=== PATIENT | male | born 1985 | race Caucasian/White ===

== ENCOUNTER 2017-02-23 02:47 | Inpatient (IN) | payer SELFPAY ==
[2017-02-23] VITALS (15 sets, daily range): BP systolic 104–150; BP diastolic 54–90; PULSE 59–99; RESP 16–22; TEMP 97.9–99.3; O2SAT 98–100
[~2017-02-23 02:47] MED LIST: AUGM875 PO; DIFL500T PO
[2017-02-23] MEDS ORDERED: PROPOFOL 1000 MG/100 ML INJ 100 ML ONE (02:58)
[2017-02-23 03:08] LABS: I-STAT POTASSIUM 4.3 MMOL/L (3.5-4.9)
[2017-02-23 03:10] LABS: AUTOMATED NEUTROPHIL # 12.1 TH/MM3 (1.8-7.7); BASOPHIL # 0.1 TH/MM3 (0-0.2); BASOPHIL % 0.6 % (0.0-2.0); EOSINOPHIL # 0.2 TH/MM3 (0-0.4); EOSINOPHIL % 0.8 % (0.0-4.0); HEMATOCRIT 46.2 % (39.0-51.0); LYMPH % 28.8 % (9.0-44.0); LYMPHOCYTE # 5.2 TH/MM3 (1.0-4.8); MEAN CELL VOLUME 91.9 FL (80.0-100.0); MEAN CORPUSCULAR HEMOGLOBIN 31.2 PG (27.0-34.0); MONO % 2.3 % (0.0-8.0); NEUT % 67.5 % (16.0-70.0); PLATELET COUNT 231 TH/MM3 (150-450); RED BLOOD COUNT 5.03 MIL/MM3 (4.50-5.90); RED CELL DISTRIBUTION WIDTH 13.6 % (11.6-17.2)
[2017-02-23 03:13] LABS: HEMO FLAGS AUTO DIFF
[2017-02-23] MEDS ORDERED: DIPHTH/TETANUS/ACEL PERTUSSIS (BOOSTER) 0.5 ML VIAL/PFS IM ONE (03:16)
[2017-02-23] MEDS ORDERED: ceFAZolin 2 GM PREMIX 50 ML IV STA (03:17)
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
[2017-02-23] MEDS ORDERED: ceFAZolin 2 GM PREMIX 50 ML ONE (03:27)
[2017-02-23 03:41] LABS: INTERNATIONAL NORMALIZED RATIO 1.1 RATIO; PROTHROMBIN TIME - PATIENT 11.7 SEC (9.8-11.6)
[2017-02-23] MEDS ORDERED: LACTULOSE SYRUP 20 GM/30 ML CUP PO PRN (03:45)
[2017-02-23] MEDS ORDERED: BISACODYL 10 MG SUPP RECTAL PRN (03:45)
[2017-02-23] MEDS ORDERED: MISCELLANEOUS NURSING INFORMATION XX SCH (03:45)
[2017-02-23] MEDS ORDERED: CHLORHEXIDINE GLUCONATE 2 % 1 PACK (2 CLOTHS) TOP PRN (03:45)
[2017-02-23] MEDS ORDERED: SODIUM CHLORIDE 0.9% FLUSH 10 ML FLUSH IV FLUSH PRN (03:45)
[2017-02-23] MEDS ORDERED: ACETAMINOPHEN 325 MG TAB PO PRN (03:45)
[2017-02-23] MEDS ORDERED: SENNOSIDES 8.6 MG TAB PO PRN (03:45)
[2017-02-23] MEDS ORDERED: MAGNESIUM HYDROXIDE SUSP 30 ML CUP PO PRN (03:45)
[2017-02-23 03:49] LABS: APTT (PATIENT) 25.9 SEC (24.3-30.1)
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
[2017-02-23 04:02] LABS: BANDS 2 % (0-6); BASOPHILS 1 % (0-2); METAMYELOCYTES 1 % (0-1); NEUTROPHIL # MANUAL DIFF 11.9 TH/MM3 (1.8-7.7); POLYS (SEG NEUTROPHILS) 63 % (16-70); WBC DIFF SAMPLE 100
[2017-02-23 04:03] LABS: PLATELET ESTIMATE SMEAR NORMAL (NORMAL); PLATELET MORPHOLOGY NORMAL (NORMAL)
[2017-02-23 04:04] LABS: SCAN/DIFF FINAL DIFF MANUAL
[2017-02-23] MEDS: CHLORHEXIDINE GLUCONATE 2 % 1 PACK (2 CLOTHS) TOP SCH (04:30)
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
[2017-02-23] MEDS ORDERED: IOHEXOL 350 MG/ML 10 ML VIAL (for RAD DIAG) IV ONE (04:37)
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
[2017-02-23] MEDS: PROPOFOL 1000 MG/100 ML INJ 100 ML IV SCH ×3 (04:55→23:30)
[2017-02-23] MEDS: SODIUM CHLOR 0.9% 1000 ML INJ 1,000 ML IV SCH ×2 (04:55→12:16)
[2017-02-23] MEDS: fentaNYL DRIP 250 ML IV SCH ×3 (04:55→23:29)
[2017-02-23 05:30] LABS: BLOOD GAS BASE EXCESS -6.8 mmol/L (-2-2); BLOOD GAS CARBOXYHEMOGLOBIN 1.1 % (0-4); BLOOD GAS HCO3 18 mmol/L (22-26); BLOOD GAS O2 HGB SATURATION 98 % (90-100); BLOOD GAS OXYGEN CONTENT 20.5 Vol % (12.0-20.0); BLOOD GAS PCO2 38 mmHg (38-42); BLOOD GAS PO2 536 mmHg (61-120); BLOOD GAS TOTAL HGB 13.9 G/DL (12.0-16.0); TEMP CORR TO 98.6
[2017-02-23 05:31] LABS: CRITICAL VALUE NO; DRAW SITE LT RADIAL; FIO2 100 %; NUMBER OF ARTERIAL PUNCTURES 1; OXYGEN DEVICE VENTILATOR; STAT NO; ULNAR PULSE PRESENT; VENT SETTINGS AC/16/500/PEEP5
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
[2017-02-23 05:57] LABS: HEMATOCRIT 40.3 % (39.0-51.0)
[2017-02-23] MEDS ORDERED: VANCOMYCIN HCL 1000 MG VIAL ONE (07:11)
[2017-02-23] MEDS ORDERED: SODIUM CHLOR 0.9% 250 ML INJ 250 ML ONE (07:11)
[2017-02-23] MEDS ORDERED: GENTAMICIN SULFATE 80 MG/2 ML VIAL ONE (07:11)
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
[2017-02-23] MEDS ORDERED: TRANEXAMIC ACID IV SCH ×2 (07:45→07:52)
[2017-02-23] MEDS ORDERED: SODIUM CHLORIDE 0.9% IV SCH ×2 (07:45→07:52)
[2017-02-23] MEDS ORDERED: TRANEXAMIC ACID INJ 1,005 MG in SODIUM CHLORIDE 0.9% INJ 100 ML IV SCH (07:45)
[2017-02-23] MEDS: DOCUSATE SODIUM 50 MG/SENNA 8.6 MG TAB PO SCH ×2 (07:49→20:48)
[2017-02-23] MEDS: SODIUM CHLORIDE 0.9% FLUSH 10 ML FLUSH IV FLUSH SCH ×2 (07:49→20:48)
[2017-02-23] MEDS: PANTOPRAZOLE SODIUM 40 MG VIAL IV SCH (07:56)
[2017-02-23] MEDS ORDERED: RESP: ALBUTEROL 2.5 MG/IPRATROPIUM 0.5 MG NEB (PRN) NEB (08:00)
[2017-02-23] MEDS ORDERED: POTASSIUM PHOSPHATE MONOBASIC 500 MG TAB PO PRN (08:00)
[2017-02-23] MEDS ORDERED: MAGNESIUM SULFATE INJ 2 GM in SODIUM CHLORIDE 0.9% INJ 96 ML IV PRN (08:00)
[2017-02-23] MEDS ORDERED: MAGNESIUM OXIDE 400 MG TAB PO PRN (08:00)
[2017-02-23] MEDS ORDERED: POTASSIUM PHOSPHATE MONOBASIC 500 MG TAB PO/TUBE PRN (08:00)
[2017-02-23] MEDS ORDERED: POTASSIUM CHLOR 20 MEQ PREMIX 100 ML IV PRN (08:00)
[2017-02-23] MEDS ORDERED: POTASSIUM CHLOR 40 MEQ PREMIX 100 ML IV PRN ×2 (08:00)
[2017-02-23] MEDS ORDERED: SODIUM PHOSPHATE INJ 30 MMOL in SODIUM CHLOR 0.9% 250 ML INJ 240 ML IV PRN (08:00)
[2017-02-23] MEDS ORDERED: MAGNESIUM SULFATE INJ 4 GM in SODIUM CHLORIDE 0.9% INJ 92 ML IV PRN (08:00)
[2017-02-23] MEDS ORDERED: POTASSIUM CHLORIDE 25 MEQ EFFERVESCENT TAB PO PRN (08:00)
[2017-02-23] MEDS: CHLORHEXIDINE 0.12% (ORAL KIT) 15 ML CUP MT SCH ×2 (08:00→20:49)
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
[2017-02-23] MEDS ORDERED: ACETAMINOPHEN 1000 MG/100 ML VIAL IV ONE (08:15)
[2017-02-23] MEDS ORDERED: MIDAZOLAM HCL 5 MG/5 ML VIAL ONE (08:15)
[2017-02-23] MEDS ORDERED: FAMOTIDINE 20 MG/2 ML VIAL ONE (08:16)
[2017-02-23] MEDS ORDERED: HYDROmorphone HCL PF 2 MG/ML VIAL ONE (08:16)
[2017-02-23] MEDS ORDERED: fentaNYL CITRATE 250 MCG/5 ML AMP ONE ×2 (08:16)
[2017-02-23] MEDS ORDERED: DEXAMETHASONE SOD PHOS 4 MG/ML VIAL ONE (08:16)
[2017-02-23] MEDS: levETIRAcetam INJ 500 MG in SODIUM CHLORIDE 0.9% INJ 100 ML IV SCH ×2 (08:32→20:48)
[2017-02-23] MEDS: LACTULOSE SYRUP 20 GM/30 ML CUP PO SCH (09:00)
[2017-02-23] MEDS: RESP: ALBUTEROL 2.5 MG/IPRATROPIUM 0.5 MG NEB (SCH) NEB ×3 (09:15→20:04)
[2017-02-23 10:41] LABS: MAGNESIUM 2.6 MG/DL (1.5-2.5)
[2017-02-23] MEDS: LACTATED RINGER'S 1000 ML INJ 1,000 ML IV SCH ×2 (10:42→19:44)
[2017-02-23] MEDS ORDERED: ACETAMINOPHEN/HYDROcodone 325 MG/10 MG TAB PO PRN ×2 (10:45)
--- NOTE | 2017-02-23 10:51 | PD.OP ---
cc: Abel Rae MD Operative Report Date of Surgery: February 23, 2017 Preoperative Diagnosis: Pubic symphysis tech stasis, right sacroiliac joint disruption Postoperative Diagnosis: Procedure: Open reduction internal fixation pubic symphysis, right iliosacral screw placement Anesthesia: Gen. Surgeon: Abel Rae Boat Builder(s): DIMPLE De La O PA-C The surgical procedure was assisted by my physician fundraising assistant. My P.A. presence was necessary throughout this case for the manipulation and positioning of the surgical extremity. My P.A. was assisting me throughout the duration of this procedure. The skill set of a physician fundraising assistant was medically necessary to complete this procedure. During the surgical case the surgical forceps fabricator was working at the back table and the physician fundraising assistant was directly assisting me. Operation and Findings: Patient was seen and evaluated preoperatively. Patient was intubated and sedated and no family was available for consents. Consents were signed is medically necessary by 2 physicians. The operative site was marked. Patient was brought to the OR and placed on the OR table. IV sedation and general endotracheal anesthesia were administered. The pelvic region was prepped with alcohol followed by Hibiclens and draped in the usual sterile fashion. A timeout procedure was performed. IV antibiotics were given prior to incision. The procedure began with a five-inch Pfannenstiel incision over the lower abdomen. The subcutaneous tissue was dissected with Bovie. The linea alba was split in line with fibers. The bladder was identified. The bladder was protected throughout the procedure. At this point the pubic symphysis was identified. There was disruption of the pubic symphysis. A 3.5 screw was placed on each side of the pubic symphysis. A 3.5 reduction clamp was now used to reduce the symphysis. Fluoroscopy confirmed excellent alignment of the pelvic ring. A six-hole ITS plate was selected. The plate was provisionally held to bone with K-wires. 3.5 cortical screws were used to compress plate to bone. Three screws were placed on each side of the pubic symphysis. All screws were pre-drilled and pre-measured for appropriate length. Final fluoroscopy revealed well-aligned fracture with well-placed hardware. At this point the right sacroiliac joint was visualized. Joint was still widened. The leg was manipulated. The joint was reducible. A 1 cemented incision was made over the lateral ilium. A guidepin was placed through the lateral ilium. The circular joint was now held in a reduced position. Guidepin was now advanced into the center of the S1 body. A combination of the femoral canal fluoroscopy were used to aid in guidepin placement to avoid injury to neurovascular structures. Screw length was measured. Cannulated drill was placed over the guidepin. A 7.3 Synthes cannulated screw was placed over the guidepin. The sacroiliac joint reduced and excellent alignment. Next attention was turned to closure. A NICO drain was placed deep in the wound. Fascial layer was closed with #1 Vicryl. Subcutaneous tissues closed with 3- 0 Vicryl. Skin was closed with antelmo. Sterile dressings were applied. Needle and sponge counts were correct. Abel Rae MD February 23, 2017 10:51
[2017-02-23] MEDS ORDERED: ePHEDrine/NS 25 MG/5 ML SYR IV ONE (11:00)
[2017-02-23] MEDS ORDERED: PHENYLEPH/NS 1000 MCG/10 ML SYR IV ONE (11:01)
[2017-02-23] MEDS ORDERED: ONDANSETRON HCL 4 MG/2 ML VIAL IV PUSH ONE (11:01)
--- NOTE | 2017-02-23 11:11 | PD.ORT.PN ---
Subjective Subjective Remarks POD 0 s/p ORIF pubic symphysis and right SI screw Objective Vitals Vital Signs Date Time Temp Pulse Resp B/P Pulse Ox O2 Delivery O2 Flow Rate FiO2 02/23/17 08:45 99 60 02/23/17 08:00 30 02/23/17 08:00 98.4 71 16 104/54 98 02/23/17 08:00 71 02/23/17 07:00 98 Mechanical Ventilator 30 02/23/17 06:00 76 02/23/17 04:00 100 02/23/17 04:00 97.9 99 22 150/90 100 02/23/17 04:00 99 02/23/17 03:30 100 100 02/23/17 03:30 100 100 I/O 02/22/17 02/22/17 02/22/17 02/23/17 02/23/17 02/23/17 07:00 15:00 23:00 07:00 15:00 23:00 Intake Total 1233 ml Output Total 900 ml Balance 333 ml Intake IV Total 1233 ml Output Urine Total 800 ml Gastric Drainage Total 100 ml Result Diagram: 02/23/17 0541 Other Results Laboratory Tests Test 02/23/17 02:50 Prothrombin Time 11.7 SEC (9.8-11.6) Prothromb Time International 1.1 RATIO Ratio Imaging Last 24 hours Impressions Pelvis X-Ray 02/23/17300 Signed Impressions: Service Date/Time: Thursday, February 23, 2017 02:41 - CONCLUSION: The pubic symphysis is widened to 2.6 cm. Mark Santiago MD Maxillofacial CT 02/23/17300 Signed Impressions: Service Date/Time: Thursday, February 23, 2017 03:17 - CONCLUSION: Normal examination except for mild sinus disease in the maxillary sinuses. Mark Santiago MD Head CT 02/23/17300 Signed Impressions: Service Date/Time: Thursday, February 23, 2017 03:14 - CONCLUSION: Subarachnoid and midline hemorrhage in the orbital frontal cortices bilaterally. Mark Santiago MD Chest X-Ray 02/23/17300 Signed Impressions: Service Date/Time: Thursday, February 23, 2017 02:41 - CONCLUSION: Normal examination. Mark Santiago MD Chest CT 02/23/17300 Signed Impressions: Service Date/Time: Thursday, February 23, 2017 03:28 - CONCLUSION: Patchy infiltrate throughout the lungs primarily anteriorly raises possibility of contusions. Mild pneumomediastinum. Questionable laceration of the liver Mark Santiago MD Cervical Spine CT 02/23/17300 Signed Impressions: Service Date/Time: Thursday, February 23, 2017 03:17 - CONCLUSION: Normal examination. Mark Santiago MD Abdomen/Pelvis CT 02/23/17300 Signed Impressions: Service Date/Time: Thursday, February 23, 2017 03:28 - CONCLUSION: Much better alignment of the pubic symphysis and the SI joints bilaterally. Ill-defined bilobed hypodensity in the right lobe of liver likely contained laceration. I don't see any fluid around the liver. Mark Santiago MD Neck CTA 02/23/17 0000 Signed Impressions: Service Date/Time: Thursday, February 23, 2017 03:23 - CONCLUSION: Mild narrowing of the right internal carotid artery 2 cm above its origin otherwise unremarkable study. Right vertebral artery is dominant Mark Santiago MD Chest X-Ray 02/23/17 0000 Signed Impressions: Service Date/Time: Thursday, February 23, 2017 02:41 - CONCLUSION: Normal examination. The endotracheal tube is just above the level of the clavicles Mark Santiago MD Objective Remarks Bilateral upper extremities: No laxity or obvious deformities. Intact distal pulses and cap refills Bilateral lower extremities: No laxity or obvious deformities. Intact distal pulses and cap refills Pelvic binder in place with Tong. Assessment & Plan Assessment and Plan 1) Pubic Symphysis diastasis s/p ORIF - POD 0 2) Right SI joint disruption s/p screw fixation - POD 0 -NWB BLE -daily dressing changes POD 2 -plan for DC of drain POD 2 -DVT prophylaxis with lovenox. -continue medical management -will follow up in office with Amarilis or JAMES in 2 weeks -CM for SNF placement Horacio Salazar February 23, 2017 11:11
[2017-02-23] MEDS: ceFAZolin 2 GM PREMIX 50 ML IV SCH ×2 (12:16→20:48)
--- NOTE | 2017-02-23 12:27 | RADRPT ---
EXAM DATE/TIME: 02/23/2017 10:27 [facility] COMPARISON: No previous studies available for comparison. INDICATIONS : Post-op ORIF of pelvis. MEDICAL HISTORY : None. SURGICAL HISTORY : None. ENCOUNTER: Subsequent ACUITY: 1 day PAIN SCORE: Non-responsive. LOCATION: pelvis FINDINGS: There is plate and screw fixation across the pubic symphysis and lag screw fixation across the right sacroiliac joint. Rectal temperature probe present. Normal alignment. No complications identified. CONCLUSION: 1. Pelvic fixation as above. Armando Handy MD on February 23, 2017 at 12:25 Board Certified Radiologist. This report was verified electronically.
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
[2017-02-23 19:15] LABS: HEMATOCRIT 35.7 % (39.0-51.0); REVIEW FLAG FINAL
[2017-02-23 20:02] LABS: BICARBONATE 26.1 MEQ/L (21.0-32.0); CALCIUM-PROTEIN CORRECTED 8.2 MG/DL (8.5-10.1); TOTAL BILIRUBIN ADULT 1.4 MG/DL (0.2-1.0)
[2017-02-24] VITALS (17 sets, daily range): BP systolic 105–133; BP diastolic 58–69; PULSE 53–65; RESP 12–19; TEMP 98.4–100; O2SAT 90–100
[2017-02-24] MEDS: LACTATED RINGER'S 1000 ML INJ 1,000 ML IV SCH (00:04)
[2017-02-24] MEDS: SODIUM CHLOR 0.9% 1000 ML INJ 1,000 ML IV SCH ×3 (01:17→17:16)
[2017-02-24] MEDS: RESP: ALBUTEROL 2.5 MG/IPRATROPIUM 0.5 MG NEB (SCH) NEB ×2 (02:59→08:42)
[2017-02-24] MEDS: CHLORHEXIDINE GLUCONATE 2 % 1 PACK (2 CLOTHS) TOP SCH (04:21)
[2017-02-24] MEDS: PROPOFOL 1000 MG/100 ML INJ 100 ML IV SCH (04:43)
[2017-02-24 04:55] LABS: AUTOMATED NEUTROPHIL # 9.6 TH/MM3 (1.8-7.7); BASOPHIL % 0.1 % (0.0-2.0); HEMATOCRIT 32.5 % (39.0-51.0); HEMO FLAGS DIFF FINAL; LYMPH % 9.1 % (9.0-44.0); LYMPHOCYTE # 1.1 TH/MM3 (1.0-4.8); MEAN CELL VOLUME 92.7 FL (80.0-100.0); MEAN CORPUSCULAR HEMOGLOBIN 31.3 PG (27.0-34.0); MEAN CORPUSCULAR HGB CONC 33.7 % (32.0-36.0); MONO % 8.8 % (0.0-8.0); PLATELET COUNT 116 TH/MM3 (150-450); RED BLOOD COUNT 3.51 MIL/MM3 (4.50-5.90); RED CELL DISTRIBUTION WIDTH 13.7 % (11.6-17.2); WHITE BLOOD COUNT 11.7 TH/MM3 (4.0-11.0)
[2017-02-24 05:15] LABS: INTERNATIONAL NORMALIZED RATIO 1.1 RATIO; PROTHROMBIN TIME - PATIENT 12.1 SEC (9.8-11.6)
[2017-02-24 05:19] LABS: BICARBONATE 26.5 MEQ/L (21.0-32.0); POTASSIUM 3.8 MEQ/L (3.5-5.1)
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
--- NOTE | 2017-02-24 05:51 | RADRPT ---
EXAM DATE/TIME: 02/24/2017 05:07 [facility] COMPARISON: CHEST SINGLE AP, February 23, 2017, 2:41. INDICATIONS : Follow up Respiratory distress. MEDICAL HISTORY : None. SURGICAL HISTORY : None. ENCOUNTER: Subsequent ACUITY: 2 days PAIN SCORE: Non-responsive. LOCATION: Bilateral chest FINDINGS: A single view of the chest demonstrates the lungs to be symmetrically aerated without evidence of mas s, infiltrate or effusion. The endotracheal tube and nasogastric tube are both in good position The cardiomediastinal contours are unremarkable. Osseous structures are intact. CONCLUSION: Normal examination with the endotracheal tube and nasogastric tube in good position. Mark Santiago MD on February 24, 2017 at 5:49 Board Certified Radiologist. This report was verified electronically.
[2017-02-24] MEDS: ceFAZolin 2 GM PREMIX 50 ML IV SCH (06:02)
[2017-02-24] MEDS: SODIUM CHLORIDE 0.9% FLUSH 10 ML FLUSH IV FLUSH SCH ×2 (07:34→21:00)
[2017-02-24] MEDS: LACTULOSE SYRUP 20 GM/30 ML CUP PO SCH (07:34)
[2017-02-24] MEDS: PANTOPRAZOLE SODIUM 40 MG VIAL IV SCH (07:34)
[2017-02-24] MEDS: CHLORHEXIDINE 0.12% (ORAL KIT) 15 ML CUP MT SCH (07:34)
[2017-02-24] MEDS: levETIRAcetam INJ 500 MG in SODIUM CHLORIDE 0.9% INJ 100 ML IV SCH ×2 (07:34→21:03)
[2017-02-24] MEDS: DOCUSATE SODIUM 50 MG/SENNA 8.6 MG TAB PO SCH ×3 (07:34→21:03)
[2017-02-24 08:24] LABS: CALCIUM-PROTEIN CORRECTED 8.6 MG/DL (8.5-10.1)
[2017-02-24] MEDS ORDERED: DEXMEDETOMIDINE INJ 200 MCG in SODIUM CHLORIDE 0.9% INJ 50 ML IV SCH (09:45)
[2017-02-24] MEDS ORDERED: ENOXAPARIN SODIUM 40 MG/0.4 ML SYRINGE SQ SCH (10:00)
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
[2017-02-25] VITALS (12 sets, daily range): BP systolic 128–137; BP diastolic 63–87; PULSE 54–84; RESP 15–21; TEMP 99.3–100; O2SAT 97–100
[2017-02-25] MEDS ORDERED: ONDANSETRON HCL 4 MG/2 ML VIAL IV PUSH PRN (01:45)
[2017-02-25] MEDS ORDERED: HALOPERIDOL LACTATE 5 MG/ML AMP IV PUSH ONE (01:45)
[2017-02-25] MEDS: MORPHINE SULFATE 4 MG/ML INJ IV PUSH PRN ×5 (03:49→20:44)
[2017-02-25] MEDS: CHLORHEXIDINE GLUCONATE 2 % 1 PACK (2 CLOTHS) TOP SCH (03:49)
[2017-02-25 04:34] LABS: AUTOMATED NEUTROPHIL # 13.7 TH/MM3 (1.8-7.7); BASOPHIL % 0.1 % (0.0-2.0); HEMATOCRIT 30.3 % (39.0-51.0); LYMPH % 5.4 % (9.0-44.0); LYMPHOCYTE # 0.8 TH/MM3 (1.0-4.8); MEAN CELL VOLUME 92.7 FL (80.0-100.0); MEAN CORPUSCULAR HEMOGLOBIN 32.4 PG (27.0-34.0); MONO % 6.6 % (0.0-8.0); NEUT % 87.9 % (16.0-70.0); PLATELET COUNT 98 TH/MM3 (150-450); RED BLOOD COUNT 3.27 MIL/MM3 (4.50-5.90); RED CELL DISTRIBUTION WIDTH 13.4 % (11.6-17.2); WHITE BLOOD COUNT 15.6 TH/MM3 (4.0-11.0)
[2017-02-25 04:37] LABS: HEMO FLAGS AUTO DIFF
[2017-02-25 04:56] LABS: ALKALINE PHOSPHATASE 54 U/L (45-117); ALT (GPT) 379 U/L (12-78); ANION GAP 7 MEQ/L (5-15); AST (GOT) 198 U/L (15-37); BICARBONATE 27.1 MEQ/L (21.0-32.0); BLOOD UREA NITROGEN 10 MG/DL (7-18); CHLORIDE 110 MEQ/L (98-107); GLOMERULAR FILTRATION RATE 172 ML/MIN (>89); MAGNESIUM 2.4 MG/DL (1.5-2.5); POTASSIUM 3.6 MEQ/L (3.5-5.1); SODIUM (NA) 144 MEQ/L (136-145); TOTAL BILIRUBIN ADULT 0.7 MG/DL (0.2-1.0)
[2017-02-25] MEDS: SODIUM CHLOR 0.9% 1000 ML INJ 1,000 ML IV SCH ×2 (05:10→09:54)
--- NOTE | 2017-02-25 06:19 | RADRPT ---
EXAM DATE/TIME: 02/25/2017 05:09 [facility] COMPARISON: No previous studies available for comparison. INDICATIONS : Follow up respiratory distress, pt extubated MEDICAL HISTORY : None. SURGICAL HISTORY : None. ENCOUNTER: Subsequent ACUITY: 4 - 6 days PAIN SCORE: 7/10 LOCATION: Bilateral chest FINDINGS: A single view of the chest demonstrates the lungs to be symmetrically aerated without evidence of mas s, infiltrate or effusion. Patient extubated and NG tube removed. The cardiomediastinal contours are unremarkable. Osseous structures are intact. CONCLUSION: 1. No active disease. Patient extubated and NG tube removed. Armando Handy MD on February 25, 2017 at 6:17 Board Certified Radiologist. This report was verified electronically.
[2017-02-25 07:12] LABS: PLATELET ESTIMATE SMEAR LOW (NORMAL); PLATELET MORPHOLOGY NORMAL (NORMAL); SCAN/DIFF AUTO DIFF CONFIRMED
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
[2017-02-25] MEDS: DOCUSATE SODIUM 50 MG/SENNA 8.6 MG TAB PO SCH ×3 (09:00→21:00)
[2017-02-25] MEDS: LACTULOSE SYRUP 20 GM/30 ML CUP PO SCH (09:00)
[2017-02-25] MEDS: SODIUM CHLORIDE 0.9% FLUSH 10 ML FLUSH IV FLUSH SCH ×2 (09:52→20:30)
[2017-02-25] MEDS: levETIRAcetam INJ 500 MG in SODIUM CHLORIDE 0.9% INJ 100 ML IV SCH ×2 (09:52→20:30)
[2017-02-25] MEDS: PANTOPRAZOLE SODIUM 40 MG VIAL IV SCH (09:52)
[2017-02-25] MEDS: PIPERACIL-TAZO 3.375 GM PREMIX 50 ML IV SCH ×2 (09:53→18:59)
[2017-02-25] MEDS: QUEtiapine FUMARATE 25 MG TAB PO SCH ×3 (10:00→21:00)
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
[2017-02-26] VITALS (12 sets, daily range): BP systolic 127–149; BP diastolic 63–79; PULSE 49–94; RESP 15–19; TEMP 98.7–99.9; O2SAT 93–100
[2017-02-26] MEDS: MORPHINE SULFATE 4 MG/ML INJ IV PUSH PRN ×4 (00:10→22:57)
[2017-02-26] MEDS: SODIUM CHLOR 0.9% 1000 ML INJ 1,000 ML IV SCH (01:36)
[2017-02-26] MEDS: PIPERACIL-TAZO 3.375 GM PREMIX 50 ML IV SCH ×3 (01:55→17:06)
[2017-02-26] MEDS ORDERED: LIDOCAINE HCL 2% 100 MG/5 ML SYRINGE ONE (03:38)
[2017-02-26] MEDS ORDERED: ATROPINE SULFATE 1 MG/10 ML SYRINGE ONE (03:38)
[2017-02-26] MEDS ORDERED: EPINEPHrine HCL (1:10,000) 1 MG/10 ML SYRINGE ONE (03:38)
[2017-02-26] MEDS: CHLORHEXIDINE GLUCONATE 2 % 1 PACK (2 CLOTHS) TOP SCH (04:00)
--- NOTE | 2017-02-26 04:58 | RADRPT ---
EXAM DATE/TIME: 02/26/2017 04:01 [facility] COMPARISON: CHEST SINGLE AP, February 25, 2017, 5:09. INDICATIONS : Short of breath. MEDICAL HISTORY : None. SURGICAL HISTORY : None. ENCOUNTER: Subsequent ACUITY: 2 days PAIN SCORE: Non-responsive. LOCATION: Bilateral chest FINDINGS: A single view of the chest demonstrates the lungs to be symmetrically aerated without evidence of mas s, infiltrate or effusion. The cardiomediastinal contours are unremarkable. Osseous structures are intact. CONCLUSION: No acute disease. Luis Manuel Pereira MD on February 26, 2017 at 4:56 Board Certified Radiologist. This report was verified electronically.
--- NOTE | 2017-02-26 05:04 | RADRPT ---
EXAM DATE/TIME: 02/26/2017 03:50 [facility] COMPARISON: CT BRAIN W/O CONTRAST, February 24, 2017, 5:04. INDICATIONS : Follow up trauma. RADIATION DOSE: 56.35 CTDIvol (mGy) MEDICAL HISTORY : None SURGICAL HISTORY : None. ENCOUNTER: Subsequent ACUITY: 2 days PAIN SCALE: 0/10 LOCATION: cranial TECHNIQUE: Multiple contiguous axial images were obtained of the head. Using automated exposure control and adj ustment of the mA and/or kV according to patient size, radiation dose was kept as low as reasonably a chievable to obtain optimal diagnostic quality images. FINDINGS: Evolving bifrontal and bitemporal contusions are again noted. Mild blood along the tentorial leaves i s again noted. A small evolving contusion is seen in the left globus pallidus. The ventricles are sta ble and symmetric. No new acute findings are identified. CONCLUSION: Roughly stable evolving brain injuries with no new acute findings Luis Manuel Pereira MD on February 26, 2017 at 5:00 Board Certified Radiologist. This report was verified electronically.
[2017-02-26] MEDS ORDERED: BISACODYL 10 MG SUPP RECTAL ONE (08:45)
[2017-02-26] MEDS ORDERED: BISACODYL EC 5 MG TABEC PO ONE (08:45)
[2017-02-26] MEDS: SODIUM CHLORIDE 0.9% FLUSH 10 ML FLUSH IV FLUSH SCH ×2 (09:00→20:55)
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
[2017-02-26] MEDS: QUEtiapine FUMARATE 25 MG TAB PO SCH ×2 (09:41→20:15)
[2017-02-26] MEDS: LACTULOSE SYRUP 20 GM/30 ML CUP PO SCH (09:41)
[2017-02-26] MEDS: PANTOPRAZOLE SODIUM 40 MG VIAL IV SCH (09:42)
[2017-02-26] MEDS: levETIRAcetam INJ 500 MG in SODIUM CHLORIDE 0.9% INJ 100 ML IV SCH ×2 (09:42→20:55)
[2017-02-26] MEDS: DOCUSATE SODIUM 50 MG/SENNA 8.6 MG TAB PO SCH ×2 (10:38→20:55)
[2017-02-26] MEDS: SODIUM CHLORIDE 23.4% INJ 188 MEQ in SODIUM CHLOR 0.9% 1000 ML INJ 1,000 ML IV SCH (10:54)
--- NOTE | 2017-02-26 11:14 | PD.ORT.PN ---
Subjective Post Op Day #: 3 Subjective Remarks Patient in ICU, arousable and answering some questions, in restraints. RN reports pt will be transferred to floor. Objective Vitals Vital Signs Date Time Temp Pulse Resp B/P Pulse Ox O2 Delivery O2 Flow Rate FiO2 02/26/17 10:00 63 02/26/17 08:00 51 02/26/17 08:00 98.8 54 15 141/72 99 02/26/17 07:00 98 Room Air 02/26/17 06:00 54 02/26/17 04:00 99.1 61 19 127/63 93 02/26/17 04:00 61 02/26/17 03:45 16 02/26/17 02:00 58 02/26/17 00:00 60 02/26/17 00:00 99.5 60 17 131/66 100 02/25/17 22:00 59 02/25/17 20:00 99.7 78 17 137/71 97 02/25/17 20:00 78 02/25/17 19:00 99 Room Air 02/25/17 18:00 60 02/25/17 16:00 63 02/25/17 16:00 99.9 62 16 133/63 100 02/25/17 14:00 59 02/25/17 12:00 68 02/25/17 12:00 99.5 68 15 131/87 98 I/O 02/25/17 02/25/17 02/25/17 02/26/17 02/26/17 02/26/17 07:00 15:00 23:00 07:00 15:00 23:00 Intake Total 800 ml 756 ml 855 ml 776 ml Output Total 595 ml 750 ml 945 ml 1155 ml Balance 205 ml 6 ml -90 ml -379 ml Intake Oral 0 ml IV Total 800 ml 756 ml 855 ml 776 ml Output Urine Total 575 ml 750 ml 925 ml 1125 ml Drainage Total 20 ml 20 ml 30 ml # Bowel Movements 0 0 0 0 Result Diagram: 02/25/17 0336 02/25/17 033 Imaging Last 24 hours Impressions Pelvis X-Ray 02/23/17 0301 Signed Impressions: Service Date/Time: Thursday, February 23, 2017 02:41 - CONCLUSION: The pubic symphysis is widened to 2.6 cm. Mark Santiago MD Maxillofacial CT 02/23/17300 Signed Impressions: Service Date/Time: Thursday, February 23, 2017 03:17 - CONCLUSION: Normal examination except for mild sinus disease in the maxillary sinuses. Mark Santiago MD Head CT 02/23/17300 Signed Impressions: Service Date/Time: Thursday, February 23, 2017 03:14 - CONCLUSION: Subarachnoid and midline hemorrhage in the orbital frontal cortices bilaterally. Mark Santiago MD Chest X-Ray 02/23/17300 Signed Impressions: Service Date/Time: Thursday, February 23, 2017 02:41 - CONCLUSION: Normal examination. Mark Santiago MD Chest CT 02/23/17300 Signed Impressions: Service Date/Time: Thursday, February 23, 2017 03:28 - CONCLUSION: Patchy infiltrate throughout the lungs primarily anteriorly raises possibility of contusions. Mild pneumomediastinum. Questionable laceration of the liver Mark Santiago MD Cervical Spine CT 02/23/17300 Signed Impressions: Service Date/Time: Thursday, February 23, 2017 03:17 - CONCLUSION: Normal examination. Mark Santiago MD Abdomen/Pelvis CT 02/23/17300 Signed Impressions: Service Date/Time: Thursday, February 23, 2017 03:28 - CONCLUSION: Much better alignment of the pubic symphysis and the SI joints bilaterally. Ill-defined bilobed hypodensity in the right lobe of liver likely contained laceration. I don't see any fluid around the liver. Mark Santiago MD Neck CTA 02/23/17 Signed Impressions: Service Date/Time: Thursday, February 23, 2017 03:23 - CONCLUSION: Mild narrowing of the right internal carotid artery 2 cm above its origin otherwise unremarkable study. Right vertebral artery is dominant Mark Santiago MD Chest X-Ray 02/23/17 Signed Impressions: Service Date/Time: Thursday, February 23, 2017 02:41 - CONCLUSION: Normal examination. The endotracheal tube is just above the level of the clavicles Mark Santiago MD Procedures 1) Pubic Symphysis diastasis s/p ORIF 2) Right SI joint disruption s/p screw fixation Objective Remarks Bilateral upper extremities: No laxity or obvious deformities. Intact distal pulses and cap refills Bilateral lower extremities: No laxity or obvious deformities. Intact distal pulses and cap refills. Pelvis: dressing dry and intact, drains in place. Assessment & Plan Ortho Post Op Day #: 3 Problem List: (1) Motorcycle accident Assessment and Plan 1) Pubic Symphysis diastasis s/p ORIF - POD 3 2) Right SI joint disruption s/p screw fixation - POD 3 -NWB BLE -daily dressing changes and d/c drain today -DVT prophylaxis with lovenox. -continue medical management -will follow up in office with Teja or JAMES in 2 weeks -CM for SNF placement Melani Elise February 26, 2017 11:14
[2017-02-26 12:07] LABS: AUTOMATED NEUTROPHIL # 9.2 TH/MM3 (1.8-7.7); BASOPHIL % 0.1 % (0.0-2.0); EOSINOPHIL % 0.1 % (0.0-4.0); HEMATOCRIT 36.7 % (39.0-51.0); HEMO FLAGS DIFF FINAL; LYMPH % 9.9 % (9.0-44.0); LYMPHOCYTE # 1.1 TH/MM3 (1.0-4.8); MEAN CORPUSCULAR HEMOGLOBIN 31.5 PG (27.0-34.0); MEAN CORPUSCULAR HGB CONC 33.8 % (32.0-36.0); MONO % 5.2 % (0.0-8.0); NEUT % 84.7 % (16.0-70.0); PLATELET COUNT 123 TH/MM3 (150-450); RED BLOOD COUNT 3.94 MIL/MM3 (4.50-5.90); RED CELL DISTRIBUTION WIDTH 12.9 % (11.6-17.2); WHITE BLOOD COUNT 10.9 TH/MM3 (4.0-11.0)
[2017-02-26 12:31] LABS: ALKALINE PHOSPHATASE 62 U/L (45-117); ALT (GPT) 270 U/L (12-78); ANION GAP 6 MEQ/L (5-15); AST (GOT) 119 U/L (15-37); BICARBONATE 32.1 MEQ/L (21.0-32.0); BLOOD UREA NITROGEN 10 MG/DL (7-18); CHLORIDE 106 MEQ/L (98-107); GLOMERULAR FILTRATION RATE 138 ML/MIN (>89); MAGNESIUM 2.5 MG/DL (1.5-2.5); POTASSIUM 3.6 MEQ/L (3.5-5.1); SODIUM (NA) 144 MEQ/L (136-145); TOTAL BILIRUBIN ADULT 1.3 MG/DL (0.2-1.0)
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
[2017-02-27] VITALS (12 sets, daily range): BP systolic 128–167; BP diastolic 64–99; PULSE 48–64; RESP 14–22; TEMP 98.2–98.7; O2SAT 98–99
[2017-02-27] MEDS: PIPERACIL-TAZO 3.375 GM PREMIX 50 ML IV SCH ×3 (03:41→17:13)
[2017-02-27] MEDS: CHLORHEXIDINE GLUCONATE 2 % 1 PACK (2 CLOTHS) TOP SCH (04:00)
[2017-02-27 04:37] LABS: BASOPHIL % 0.2 % (0.0-2.0); EOSINOPHIL % 0.4 % (0.0-4.0); HEMATOCRIT 34.6 % (39.0-51.0); HEMO FLAGS DIFF FINAL; LYMPH % 12.5 % (9.0-44.0); LYMPHOCYTE # 1.2 TH/MM3 (1.0-4.8); MEAN CELL VOLUME 93.1 FL (80.0-100.0); MEAN CORPUSCULAR HEMOGLOBIN 31.1 PG (27.0-34.0); MEAN CORPUSCULAR HGB CONC 33.4 % (32.0-36.0); MONO % 6.6 % (0.0-8.0); NEUT % 80.3 % (16.0-70.0); PLATELET COUNT 125 TH/MM3 (150-450); RED BLOOD COUNT 3.72 MIL/MM3 (4.50-5.90); RED CELL DISTRIBUTION WIDTH 13.3 % (11.6-17.2); WHITE BLOOD COUNT 9.9 TH/MM3 (4.0-11.0)
[2017-02-27 04:52] LABS: ALKALINE PHOSPHATASE 58 U/L (45-117); ALT (GPT) 199 U/L (12-78); ANION GAP 6 MEQ/L (5-15); AST (GOT) 67 U/L (15-37); BICARBONATE 27.7 MEQ/L (21.0-32.0); BLOOD UREA NITROGEN 13 MG/DL (7-18); CHLORIDE 113 MEQ/L (98-107); GLOMERULAR FILTRATION RATE 169 ML/MIN (>89); MAGNESIUM 2.3 MG/DL (1.5-2.5); POTASSIUM 3.4 MEQ/L (3.5-5.1); SODIUM (NA) 147 MEQ/L (136-145); TOTAL BILIRUBIN ADULT 0.8 MG/DL (0.2-1.0)
[2017-02-27] MEDS: SODIUM CHLORIDE 23.4% INJ 188 MEQ in SODIUM CHLOR 0.9% 1000 ML INJ 1,000 ML IV SCH (06:29)
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
[2017-02-27] MEDS: SODIUM CHLORIDE 0.9% FLUSH 10 ML FLUSH IV FLUSH SCH ×2 (08:12→20:05)
[2017-02-27] MEDS: QUEtiapine FUMARATE 25 MG TAB PO SCH ×2 (08:12→20:04)
[2017-02-27] MEDS: levETIRAcetam INJ 500 MG in SODIUM CHLORIDE 0.9% INJ 100 ML IV SCH ×2 (08:12→20:05)
[2017-02-27] MEDS: POLYETHYLENE GLYCOL 17 GM PKG PO SCH (08:12)
[2017-02-27] MEDS: LACTULOSE SYRUP 20 GM/30 ML CUP PO SCH (08:12)
[2017-02-27] MEDS: DOCUSATE SODIUM 50 MG/SENNA 8.6 MG TAB PO SCH ×2 (08:12→20:06)
[2017-02-27] MEDS: PANTOPRAZOLE SODIUM 40 MG VIAL IV SCH (08:12)
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
[2017-02-27] MEDS: POTASSIUM CHLOR 20 MEQ PREMIX 100 ML IV PRN ×2 (10:24→12:56)
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
[2017-02-27] MEDS: MORPHINE SULFATE 4 MG/ML INJ IV PUSH PRN ×2 (14:35→20:04)
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
[2017-02-27] MEDS: MAGNESIUM HYDROXIDE SUSP 30 ML CUP PO SCH (20:05)
[2017-02-28] VITALS (10 sets, daily range): BP systolic 137–165; BP diastolic 65–98; PULSE 48–65; RESP 14–21; TEMP 97–98.7; O2SAT 98–100
[2017-02-28] MEDS: PIPERACIL-TAZO 3.375 GM PREMIX 50 ML IV SCH ×3 (01:48→17:58)
[2017-02-28] MEDS: MORPHINE SULFATE 4 MG/ML INJ IV PUSH PRN (01:49)
[2017-02-28] MEDS: CHLORHEXIDINE GLUCONATE 2 % 1 PACK (2 CLOTHS) TOP SCH (04:00)
[2017-02-28 04:36] LABS: AUTOMATED NEUTROPHIL # 7.7 TH/MM3 (1.8-7.7); BASOPHIL % 0.1 % (0.0-2.0); EOSINOPHIL # 0.1 TH/MM3 (0-0.4); EOSINOPHIL % 1.3 % (0.0-4.0); HEMATOCRIT 34.8 % (39.0-51.0); HEMO FLAGS DIFF FINAL; LYMPH % 13.4 % (9.0-44.0); LYMPHOCYTE # 1.3 TH/MM3 (1.0-4.8); MEAN CELL VOLUME 92.4 FL (80.0-100.0); MEAN CORPUSCULAR HEMOGLOBIN 30.9 PG (27.0-34.0); MEAN CORPUSCULAR HGB CONC 33.5 % (32.0-36.0); NEUT % 78.2 % (16.0-70.0); PLATELET COUNT 140 TH/MM3 (150-450); RED BLOOD COUNT 3.76 MIL/MM3 (4.50-5.90); RED CELL DISTRIBUTION WIDTH 12.7 % (11.6-17.2); WHITE BLOOD COUNT 9.9 TH/MM3 (4.0-11.0)
[2017-02-28 04:58] LABS: ANION GAP 10 MEQ/L (5-15); AST (GOT) 44 U/L (15-37); BICARBONATE 24.4 MEQ/L (21.0-32.0); BLOOD UREA NITROGEN 11 MG/DL (7-18); CHLORIDE 110 MEQ/L (98-107); GLOMERULAR FILTRATION RATE 197 ML/MIN (>89); MAGNESIUM 2.2 MG/DL (1.5-2.5); POTASSIUM 3.6 MEQ/L (3.5-5.1); SODIUM (NA) 144 MEQ/L (136-145)
[2017-02-28 05:01] LABS: ALKALINE PHOSPHATASE 54 U/L (45-117); ALT (GPT) 143 U/L (12-78); TOTAL BILIRUBIN ADULT 1.1 MG/DL (0.2-1.0)
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
[2017-02-28] MEDS ORDERED: BISACODYL EC 5 MG TABEC PO ONE (08:30)
[2017-02-28] MEDS ORDERED: BISACODYL 10 MG SUPP RECTAL ONE (08:30)
[2017-02-28] MEDS: SODIUM CHLORIDE 23.4% INJ 188 MEQ in SODIUM CHLOR 0.9% 1000 ML INJ 1,000 ML IV SCH (08:32)
[2017-02-28] MEDS: levETIRAcetam INJ 500 MG in SODIUM CHLORIDE 0.9% INJ 100 ML IV SCH (08:38)
[2017-02-28] MEDS: QUEtiapine FUMARATE 25 MG TAB PO SCH ×2 (08:39→22:59)
[2017-02-28] MEDS: PANTOPRAZOLE SODIUM 40 MG VIAL IV SCH (08:39)
[2017-02-28] MEDS: LACTULOSE SYRUP 20 GM/30 ML CUP PO SCH (08:40)
[2017-02-28] MEDS: SODIUM CHLORIDE 0.9% FLUSH 10 ML FLUSH IV FLUSH SCH ×2 (08:40→21:00)
[2017-02-28] MEDS: POLYETHYLENE GLYCOL 17 GM PKG PO SCH (08:40)
[2017-02-28] MEDS: DOCUSATE SODIUM 50 MG/SENNA 8.6 MG TAB PO SCH ×2 (08:41→23:00)
[2017-02-28] MEDS ORDERED: ACETAMINOPHEN 325 MG TAB PO PRN (09:30)
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
[2017-02-28] MEDS: ENOXAPARIN SODIUM 40 MG/0.4 ML SYRINGE SQ SCH (13:00)
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
[2017-02-28] MEDS ORDERED: ACETAMINOPHEN/HYDROcodone 325 MG/5 MG TAB PO PRN (20:00)
[2017-02-28] MEDS: MAGNESIUM HYDROXIDE SUSP 30 ML CUP PO SCH (21:00)
[2017-02-28] MEDS: ACETAMINOPHEN/HYDROcodone 325 MG/5 MG TAB PO PRN (22:59)
[2017-03-01 00:30] VITALS: BP 134/79; PULSE 49; RESP 16; TEMP 96.2; O2SAT 98
[2017-03-01] MEDS: PIPERACIL-TAZO 3.375 GM PREMIX 50 ML IV SCH ×3 (01:57→17:19)
[2017-03-01] MEDS: CHLORHEXIDINE GLUCONATE 2 % 1 PACK (2 CLOTHS) TOP SCH (04:00)
[2017-03-01 05:08] VITALS: BP 116/70; PULSE 52; RESP 16; TEMP 97.7; O2SAT 97
[2017-03-01 08:00] VITALS: BP 141/87; PULSE 64; RESP 18; TEMP 97.7; O2SAT 98
[2017-03-01] MEDS: QUEtiapine FUMARATE 25 MG TAB PO SCH ×2 (08:46→19:54)
[2017-03-01] MEDS: DOCUSATE SODIUM 50 MG/SENNA 8.6 MG TAB PO SCH ×2 (08:46→19:56)
[2017-03-01] MEDS: PANTOPRAZOLE SOD 40 MG DELAYED RELEASE TAB PO SCH (08:46)
[2017-03-01] MEDS: POLYETHYLENE GLYCOL 17 GM PKG PO SCH (08:46)
[2017-03-01] MEDS: LACTULOSE SYRUP 20 GM/30 ML CUP PO SCH (08:46)
[2017-03-01] MEDS: SODIUM CHLORIDE 0.9% FLUSH 10 ML FLUSH IV FLUSH SCH ×2 (08:46→19:56)
[2017-03-01] MEDS: ACETAMINOPHEN/HYDROcodone 325 MG/5 MG TAB PO PRN ×3 (09:18→19:54)
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
[2017-03-01 12:00] VITALS: BP 127/76; PULSE 89; RESP 19; TEMP 97.1; O2SAT 98
[2017-03-01] MEDS: ENOXAPARIN SODIUM 40 MG/0.4 ML SYRINGE SQ SCH (13:16)
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
[2017-03-01 15:53] VITALS: BP 119/73; PULSE 76; RESP 17; TEMP 96.8; O2SAT 98
[2017-03-01] MEDS: MAGNESIUM HYDROXIDE SUSP 30 ML CUP PO SCH (19:56)
[2017-03-01 20:00] VITALS: BP 140/81; PULSE 66; RESP 19; TEMP 93.1; O2SAT 98
[2017-03-02] VITALS: BP 120/69; PULSE 63; RESP 16; TEMP 97.8; O2SAT 97
[2017-03-02 04:00] VITALS: BP 136/84; PULSE 63; RESP 20; TEMP 98.7; O2SAT 98
[2017-03-02] MEDS: PIPERACIL-TAZO 3.375 GM PREMIX 50 ML IV SCH (04:11)
[2017-03-02 08:00] VITALS: BP 134/76; PULSE 57; RESP 16; TEMP 98.1; O2SAT 98
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
[2017-03-02] MEDS: QUEtiapine FUMARATE 25 MG TAB PO SCH ×2 (09:00→20:55)
[2017-03-02] MEDS: LACTULOSE SYRUP 20 GM/30 ML CUP PO SCH (09:00)
[2017-03-02] MEDS: SODIUM CHLORIDE 0.9% FLUSH 10 ML FLUSH IV FLUSH SCH ×2 (09:00→20:56)
[2017-03-02] MEDS: POLYETHYLENE GLYCOL 17 GM PKG PO SCH (09:00)
[2017-03-02] MEDS: PANTOPRAZOLE SOD 40 MG DELAYED RELEASE TAB PO SCH (09:00)
[2017-03-02] MEDS: DOCUSATE SODIUM 50 MG/SENNA 8.6 MG TAB PO SCH ×2 (09:00→20:55)
[2017-03-02] MEDS: ACETAMINOPHEN/HYDROcodone 325 MG/5 MG TAB PO PRN ×2 (10:30→18:23)
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
[2017-03-02 12:00] VITALS: BP 115/64; PULSE 65; RESP 16; TEMP 98.1; O2SAT 98
[2017-03-02] MEDS: ENOXAPARIN SODIUM 40 MG/0.4 ML SYRINGE SQ SCH (13:00)
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
[2017-03-02 16:00] VITALS: BP 119/62; PULSE 77; RESP 16; TEMP 98; O2SAT 98
[2017-03-02] MEDS: MAGNESIUM HYDROXIDE SUSP 30 ML CUP PO SCH (20:56)
[2017-03-02 21:22] VITALS: BP 112/69; PULSE 62; RESP 16; TEMP 98.2; O2SAT 97
[2017-03-03 00:43] VITALS: BP 107/64; PULSE 60; RESP 16; TEMP 97.6; O2SAT 97
[2017-03-03 05:24] VITALS: BP 107/65; PULSE 65; RESP 16; TEMP 97.2; O2SAT 97
[2017-03-03 08:00] VITALS: BP 114/65; PULSE 63; RESP 16; TEMP 96.9; O2SAT 94
[2017-03-03] MEDS: ACETAMINOPHEN/HYDROcodone 325 MG/5 MG TAB PO PRN (08:12)
[2017-03-03 08:50] LABS: AUTOMATED NEUTROPHIL # 8.2 TH/MM3 (1.8-7.7); BASOPHIL % 0.2 % (0.0-2.0); EOSINOPHIL # 0.2 TH/MM3 (0-0.4); EOSINOPHIL % 2.1 % (0.0-4.0); HEMATOCRIT 40.5 % (39.0-51.0); HEMO FLAGS DIFF FINAL; LYMPH % 13.4 % (9.0-44.0); LYMPHOCYTE # 1.4 TH/MM3 (1.0-4.8); MEAN CORPUSCULAR HEMOGLOBIN 31.6 PG (27.0-34.0); MEAN CORPUSCULAR HGB CONC 34.3 % (32.0-36.0); MONO % 7.7 % (0.0-8.0); NEUT % 76.6 % (16.0-70.0); PLATELET COUNT 208 TH/MM3 (150-450); RED CELL DISTRIBUTION WIDTH 13.1 % (11.6-17.2); WHITE BLOOD COUNT 10.7 TH/MM3 (4.0-11.0)
[2017-03-03] MEDS: LACTULOSE SYRUP 20 GM/30 ML CUP PO SCH (09:24)
[2017-03-03] MEDS: SODIUM CHLORIDE 0.9% FLUSH 10 ML FLUSH IV FLUSH SCH (09:25)
[2017-03-03] MEDS: PANTOPRAZOLE SOD 40 MG DELAYED RELEASE TAB PO SCH (09:25)
[2017-03-03] MEDS: DOCUSATE SODIUM 50 MG/SENNA 8.6 MG TAB PO SCH ×2 (09:25→21:00)
[2017-03-03] MEDS: POLYETHYLENE GLYCOL 17 GM PKG PO SCH (09:25)
[2017-03-03] MEDS: QUEtiapine FUMARATE 25 MG TAB PO SCH (09:25)
[2017-03-03 09:27] LABS: ALKALINE PHOSPHATASE 67 U/L (45-117); ALT (GPT) 80 U/L (12-78); ANION GAP 6 MEQ/L (5-15); AST (GOT) 23 U/L (15-37); BICARBONATE 29.6 MEQ/L (21.0-32.0); BLOOD UREA NITROGEN 12 MG/DL (7-18); CHLORIDE 104 MEQ/L (98-107); GLOMERULAR FILTRATION RATE 148 ML/MIN (>89); POTASSIUM 3.7 MEQ/L (3.5-5.1); SODIUM (NA) 140 MEQ/L (136-145); TOTAL BILIRUBIN ADULT 0.7 MG/DL (0.2-1.0)
[2017-03-03 12:00] VITALS: BP 118/71; PULSE 73; RESP 14; TEMP 97.1; O2SAT 97
[2017-03-03] MEDS: ENOXAPARIN SODIUM 40 MG/0.4 ML SYRINGE SQ SCH (13:54)
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
[2017-03-03 16:00] VITALS: BP 106/59; PULSE 80; RESP 18; TEMP 96.7; O2SAT 99
[2017-03-03] MEDS: MAGNESIUM HYDROXIDE SUSP 30 ML CUP PO SCH (21:00)
[2017-03-03 21:08] VITALS: BP 108/64; PULSE 78; RESP 16; TEMP 97.6; O2SAT 98
[2017-03-04 00:57] VITALS: BP 113/67; PULSE 78; RESP 16; TEMP 97.6; O2SAT 99
[2017-03-04] MEDS: SODIUM CHLORIDE 0.9% FLUSH 10 ML FLUSH IV FLUSH SCH ×2 (01:52→08:50)
[2017-03-04] MEDS: QUEtiapine FUMARATE 25 MG TAB PO SCH ×2 (01:53→08:50)
[2017-03-04 06:30] VITALS: BP 106/64; PULSE 72; RESP 16; TEMP 97.6; O2SAT 99
[2017-03-04 08:00] VITALS: BP 106/65; PULSE 65; RESP 18; TEMP 98.2; O2SAT 97
[2017-03-04] MEDS: PANTOPRAZOLE SOD 40 MG DELAYED RELEASE TAB PO SCH (08:49)
[2017-03-04] MEDS: LACTULOSE SYRUP 20 GM/30 ML CUP PO SCH (08:49)
[2017-03-04] MEDS: DOCUSATE SODIUM 50 MG/SENNA 8.6 MG TAB PO SCH (08:49)
[2017-03-04] MEDS: POLYETHYLENE GLYCOL 17 GM PKG PO SCH (08:49)
[2017-03-04 12:20] VITALS: BP 131/79; PULSE 65; RESP 18; TEMP 98; O2SAT 100
[2017-03-04] MEDS: ACETAMINOPHEN/HYDROcodone 325 MG/5 MG TAB PO PRN (12:51)
[2017-03-04] MEDS: ENOXAPARIN SODIUM 40 MG/0.4 ML SYRINGE SQ SCH (12:52)
[2017-03-04] MEDS ORDERED: HYDR-3516 PO (13:24)
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
== END 2017-03-04 15:59 | disposition home or self-care (01) | DRG 957 ==
LOC: NEPI 02:47 → NEDA 03:26 → EDBD 03:26 → MERGE 03:26 → N03B 03:44 → N05A 02-28 15:27
PROVIDERS: ADMIT Surgery Trauma Surgery; ATTEND Surgery Trauma Surgery
PROC: 0QS304Z Reposition Left Pelvic Bone with Internal Fixation Device, Open Approach (ICD-10-PCS; 2017-02-23)
PROC: 0QS204Z Reposition Right Pelvic Bone with Internal Fixation Device, Open Approach (ICD-10-PCS; 2017-02-23)
PROC: 0SS Lower Joints, Reposition (ICD-10-PCS; 2017-02-23)
PROC: 0BH17EZ Insertion of Endotracheal Airway into Trachea, Via Natural or Artificial Opening (ICD-10-PCS; 2017-02-23)
PROC: 5A1945Z Respiratory Ventilation, 24-96 Consecutive Hours (ICD-10-PCS; principal; 2017-02-23 08:44)
DX: S32.810A Multiple fractures of pelvis with stable disruption of pelvic ring, initial encounter for closed fracture (principal); S06.6X0A Traumatic subarachnoid hemorrhage without loss of consciousness, initial encounter; J96.90 Respiratory failure, unspecified, unspecified whether with hypoxia or hypercapnia; S36.112A Contusion of liver, initial encounter; S27.322A Contusion of lung, bilateral, initial encounter; S06.1X0A Traumatic cerebral edema without loss of consciousness, initial encounter; S33.4XXA Traumatic rupture of symphysis pubis, initial encounter; S36.113A Laceration of liver, unspecified degree, initial encounter; T79.7XXA Traumatic subcutaneous emphysema, initial encounter; S00.31XA Abrasion of nose, initial encounter; V27.4XXA Motorcycle driver injured in collision with fixed or stationary object in traffic accident, initial encounter; Y92.488 Other paved roadways as the place of occurrence of the external cause; Y93.89 Activity, other specified; Y99.9 Unspecified external cause status; S00.81XA Abrasion of other part of head, initial encounter; S30.810A Abrasion of lower back and pelvis, initial encounter; S30.811A Abrasion of abdominal wall, initial encounter; S00.83XA Contusion of other part of head, initial encounter; F10.129 Alcohol abuse with intoxication, unspecified; Z78.1 Physical restraint status; F60.2 Antisocial personality disorder; Z91.19 Patient's noncompliance with other medical treatment and regimen
CPT/HCPCS: 31500; 36430; 36600; 70450; 70486; 70498; 71010; 71260; 72125; 72170; 72190; 74177; 76000; 80048; 80053; 80307; 82435; 82565; 82805; 82947; 83735; 84100; 84132; 84155; 84295; 84520; 85007; 85014; 85018; 85025; 85027; 85610; 85730; 86850; 86900; 86901; 86920; 87641; 90471; 90715; 94002; 94003; 94640; 94664; 94667; 96374; 96375; 99291; A0431-QM-SH; A0436-QM-SH; C1713; C1769; C9113; G0390; J0131; J0171; J0461; J0690; J1100; J1170; J1580; J1630; J1650; J1953; J2250; J2270; J2370; J2405; J2543; J3010; J3370; J3480; J7030; J7050; L0150; P9016; Q9967